=== PATIENT | male | born 1955 | race Caucasian/White ===

== ENCOUNTER 2016-08-03 07:08 | Emergency (ER) | payer OTHER ==
[~2016-08-03 07:08] MED LIST: CITALOPRAM HYDR40 MG PO; NORCO1 TA2 PO; NORTRIPTYLINE H25 MG PO; PERCOCET1 TA1 PO; [UNRECOGNIZED DRUG - OTHER] IN
--- NOTE | 2016-08-03 14:02 | DIAGNOSTIC IMAGING REPORT ---
PROCEDURE: CT ABDOMEN/PELVIS W/O CONTRAST INDICATION: Hematuria and abdominal pain TECHNIQUE: Noncontrast axial images with sagittal and coronal reformations. COMPARISON: Compared CT abdomen and pelvis on 01/21/2016. FINDINGS: ABDOMEN: There is mild left hydronephrosis and hydroureter secondary to a 5 mm proximal left ureteral calculus. There is also a 5 mm nonobstructing calculus in the upper pole left kidney. There is moderate surrounding of perirenal edema. There are small nonobstructing calculi in the right kidney (for pole 2 mm, lower pole 1 mm). Gallbladder, liver, spleen, pancreas, and aorta are normal. Small bowel pattern is normal, including appendix. There is a small 2 cm periumbilical hernia containing intra-abdominal lipomatous tissue. No evidence of bowel herniation. There are moderate to marked degenerate change of the lumbar spine. PELVIS: There is moderate enlargement prostate (4.9 cm) with central dystrophic calcifications. There is marked sigmoid diverticulosis, but no evidence of diverticulitis. There is severe changes change of the left hip joint. IMPRESSION: 1. There is acute left urinary obstruction and mild left hydronephrosis secondary to a 5 mm proximal ureteral calculus. 2. There is a 5 mm nonobstructing calculus in the upper pole left kidney. 3. There are two small nonobstructing right renal calculi (1 mm, 2 mm). 4. Moderate enlargement prostate (4.9 cm). 5. There is a 2 cm periumbilical hernia containing intra-abdominal lipomatous tissue (incidental finding). 6. Marked sigmoid diverticulosis, but no evidence of diverticulitis. 7. Moderate to marked degenerative change of the lumbar spine. 8. Marked degenerative change of the left hip joint. 9. Findings discussed with Dr. Snow Echeverria. All CT scans at this facility use dose modulation, iterative reconstruction, and/or weight-based dosing when appropriate to reduce radiation dose to as low as reasonably achievable.
--- NOTE | 2016-08-03 14:34 | ED CLINICAL REPORT ---
Clinical Report - Physicians/Mid Levels [facility] [address] [place] [address] 08/03/2016 7:07 Patient: STEFFEN CHAPARRO Time Seen: 07:57. Arrived- By private vehicle. Historian- patient. HISTORY OF PRESENT ILLNESS Chief Complaint: ABDOMINAL PAIN. This started yesterday and is still present. It was gradual in onset and has been waxing/waning. It is described as "pain". No radiation. It is described as generalized in location. Modifying factors- worsened by movement and food. Relieved by rest. The patient has had nausea. He has had vomiting. The vomiting has occurred several times. No bilious emesis, blood-tinged emesis or frankly bloody emesis. (states he "got in a fight with his pain doctor", then was trying to wean himself off). Similar symptoms previously: Several times. ( Seen at [facility] ED 10/2015, 11/2015 and 01/2016 for abdominal pain). Recent medical care: Not recently seen/assessed. REVIEW OF SYSTEMS The patient has had constipation and joint pain (especially right hip - chronic and unchanged). No black stools, hematemesis, difficulty with urination, pain with urination or urinary frequency. No bloody stools, fever, headache, sore throat or chest pain. No difficulty breathing or cough. Last bowel movement: yesterday. All systems otherwise negative, except as recorded above. PAST HISTORY PCP: Dr Feng See nurses notes. PROBLEMS: Arthritis. Diverticulitis. Ureterolithiasis. Anxiety Reaction. Chronic pain. Depression. Medications: Citalopram Hydrobromide Oral (Tablet 40 mg) 1 tablet. Oxycodone-Acetaminophen Oral (Tablet 7.5-325 mg) 2 tablets, 2x a day (now one a day trying to wean himself). Allergies: No Known Drug Allergy. SOCIAL HISTORY Never smoker. Occasional alcohol use. History of drug use: marijuana. ADDITIONAL NOTES The nursing notes have been reviewed. PHYSICAL EXAM Vital Signs: 08/03/2016 07:39 BP: 148/86. HR: 76. RR: 20. O2 saturation: 99%. Temp: 97.9 F. Pain level now: 10. Appearance: Alert. Oriented X3. Patient in moderate distress. Eyes: Eyes normal inspection. No scleral icterus or pale conjunctivae. ENT: Dry mucous membranes present. No pharyngeal erythema or tonsillar exudate. Neck: Normal inspection. Neck supple. CVS: Normal heart rate and rhythm. Heart sounds normal. Pulses normal. Respiratory: No respiratory distress. Breath sounds normal. Abdomen: Soft. Moderate tenderness diffusely. Small, tender mass with guarding present in the periumbilical area (umbilical hernia - easily reducible; no ecchymosis or overlying erythema). No pulsatile mass present. Femoral pulses equal. Severely obese. No rebound tenderness or femoral pulse deficit. Back: Normal inspection. Skin: Skin warm and dry. Normal skin color. Normal skin turgor. Extremities: Right hip: tenderness. Limited ROM secondary to pain. The right leg is not shortened, externally rotated, internally rotated, flexed or adducted. The right leg is not abducted. No lower extremity edema. Neuro: Oriented X 3. No motor deficit. LABS, X-RAYS, AND EKG Abdominal CT: Normal aorta. Normal liver, spleen, pancreas, gallbladder and adrenals. Multiple urinary calculi are present in the left proximal ureter (5 mm; 2 small calculi also noted in the kidney). There is mild obstruction. Bladder normal. Appendix normal. No mass. No free fluid. No bony lesion. No diverticulitis. Study type: abdomen and pelvis. Abdominal CT performed with contrast and without contrast. The study was independently viewed by me, interpreted by the radiologist and contemporaneously by me and discussed with the radiologist. Prior studies were not available for comparison. Laboratory Tests: CBC w Diff: (MARÍA: 08/03/2016 08:45) ( MsgRcvd 08/03/2016 09:02) Final results Test Result Flag Units (Reference) WHITE BLOOD COUNT 17.0 H K/uL (4.5-11.5) RED BLOOD COUNT 4.84 M/uL (4.50-5.90) HEMOGLOBIN 14.9 gm/dL (13.5-17.5) HEMATOCRIT 44.3 % (41.0-53.0) MEAN CELL VOLUME 92 fL (80-100) MEAN CORPUSCULAR HGB 31 pg (26-34) MEAN CORPUSCULAR HGB CONC 34 g/dL (31-37) RED CELL DISTRIBUTION WIDTH 13.9 % (11.6-14.8) PLATELET COUNT 304 K/uL (150-400) NEUTROPHIL % 91.4 H % (50-75) LYMPH % 4.6 L % (25-40) MONO % 3.8 % (3-14) EOSINOPHIL % 0.1 % (0-4) BASOPHIL % 0.1 % (0-2) PT with INR: (MARÍA: 08/03/2016 08:45) ( [facility] 08/03/2016 09:16) Final results Test Result Flag Units (Reference) INR 0.9 (0.8-1.2) Low Intensity Therapy: INR 1.5-2.0 PT range 18.5-23.1Mod.Intensity Therapy: INR 2.0-3.0 PT range 23.1-31.5High Intensity Therapy: INR 2.5-3.5 PT range 27.4-35.5High Intensity Therapy 2: INR 3.0-4.0 PT range 31.5-39.3 BNP: (MARÍA: 08/03/2016 08:45) ( [facility] 08/03/2016 09:34) Final results Test Result Flag Units (Reference) B-TYPE NATRIURETIC PEPTIDE 13.7 pg/ml (5-100) CHEM 13 PANEL: (MARÍA: 08/03/2016 08:45) ( [facility] Final results Test Result Flag Units (Reference) GLUCOSE 138 H mg/dL (70-110) BUN 21 H mg/dL (7-18) CREATININE 1.2 mg/dL (0.6-1.3) Estimated GFR >60 mL/min Estimated GFR- >60 mL/min Note: Persistent reduction over 3 months in eGFR<60 mL/min/1.73 m2 defines CKD. Patients with eGFR values>=60 mL/min/1.73 m2 may also have CKD if evidence ofpersistent proteinuria. Additional information may be foundat www.kidney.org. SODIUM 144 mmol/L (136-145) POTASSIUM 4.2 mmol/L (3.5-5.1) CHLORIDE 107 mmol/L (98-107) CARBON DIOXIDE 23 mmol/L (21-32) CALCIUM 9.7 mg/dL (8.5-10.1) TOTAL PROTEIN 7.8 g/dL (6.4-8.2) ALBUMIN 4.1 g/dL (3.3-5.0) BILIRUBIN, TOTAL 0.4 mg/dL (0.0-1.0) ALKALINE PHOSPHATASE 113 U/L (46-116) AST (SGOT) 16 U/L (15-37) ALT (SGPT) 41 U/L (12-78) MAGNESIUM 2.2 mg/dL (1.8-2.4) LIPASE 137 U/L (73-393) AMYLASE 57 U/L (25-115) CPK 67 U/L (24-260) TROPONIN I <0.05 L ng/mL (0.00-1.5) TROPONIN REFERENCE RANGE:<0.1 NEGATIVE0.1-1.5 INDETERMINANT>1.5 POSITIVE ETHYL ALCOHOL <3 L mg/dL (3-10) . Pulse Oximetry: 08/03/2016 07:39 O2 saturation: 99%. PROGRESS AND PROCEDURES Course of Care: Normal Saline 1 liter IVPB given. Phenergan 12.5 mg IVP given. Zofran 4 mg IVP given. I did receive this pt in sign-out at change of shift, pending the remainder of work-up. Pt continued to be in pain, and was given a dose of Dilaudid for this, with significant relief. CT of the abdomen and pelvis showed a significantly-sized, L ureteral stone, with mild hydronephrosis. No other acute or emergent findings. Pt was given a strainer, and advised to f/u with the urologist if stone fails to pass spontaneously in the next couple of weeks. Patient counseled in person regarding the patient's stable condition, test results, diagnosis and need for follow-up. Concerns were addressed. Old medical records reviewed. Disposition: Discharged. Condition: stable and improved. CLINICAL IMPRESSION Ureterolithiasis (single stone) in the left ureter with renal colic and hydronephrosis. Constipation Essential hypertension. INSTRUCTIONS Drink plenty of fluids. (You have a large kidney stone in the middle of your left ureter (tube going from your kidney to your bladder). This may pass on its own, but it is possible that the stone could get stuck. Because of this, you should follow up with the urology specialists.). Warnings: SEDATIVE MEDICATION: You were given sedative medication during your visit. Do not drive or operate dangerous machinery for 6 hours. GENERAL WARNINGS: Return or contact your physician immediately if your condition worsens or changes unexpectedly, if not improving as expected, or if other problems arise. Your Current Medications: CONTINUE TAKING THE FOLLOWING MEDICATIONS: Citalopram Hydrobromide Oral : Tablet 40 mg, 1 tablet. Oxycodone-Acetaminophen Oral : Tablet 7.5-325 mg, 2 tablets 2x a day, now one a day trying to wean himself. Prescription Medications: Zofran (orally disintegrating tablets) 4 mg: take 1-2 orally every 6 hours as needed for nausea. Dispense fifteen (15). No refill. Substitution is permissible. Flomax 0.4 mg: take 1 orally every 24 hours. Dispense ten (10). No refills. Substitution is permissible. Hydrocodone/APAP 5mg / 325mg: take 1-2 orally every 6 hours as needed for pain. Dispense twenty (20). No refill. Follow-up: Screening today revealed the patient's blood pressure to be in the hypertensive range. The patient should follow up with a primary care provider for blood pressure management. Understanding of the discharge instructions verbalized by patient. (Electronically signed by Snow Echeverria MD 08/10/2016 13:42)
--- NOTE | 2016-08-03 14:34 | ED NURSING NOTES ---
Clinical Report - Nurses [facility] [address] [place] [address] 08/03/2016 7:07 Patient: STEFFEN CHAPARRO TRIAGE Triage time 07:39. Acuity: LEVEL 3. Chief Complaint: ABDOMINAL PAIN and NAUSEA. Alert. ALEJANDRA COMA SCORE: Alejandra Coma Scale: 15- eyes open spontaneously (4); best verbal response- oriented x 4 (5); best motor response- obeys commands (6). --07:51 Shiloh Yanez R.N. 07:39 08/03/16. BP: 148/86. HR: 76. RR: 20. O2 saturation: 99%. Temp: 97.9 F (oral). Pain level now: 02/09. --07:51 Shiloh Yanez R.N. Weight: 18.1 kg stated. Height/Length: 72 inches Per Patient. BMI: 5.4. --07:43 Shiloh Yanez R.N. Medications Oxycodone-Acetaminophen Oral (Tablet 7.5-325 mg) 2 tablets, 2x a day (now one a day trying to wean himself). --07:40 Shiloh Yanez R.N. Citalopram Hydrobromide Oral (Tablet 40 mg) 1 tablet. --07:41 Shiloh Yanez R.N. Medication/allergy information source: the patient. --07:51 Shiloh Yanez R.N. Allergies No Known Drug Allergy. --07:42 Shiloh Yanez R.N. History Arrived by private vehicle. Historian: patient. Unaccompanied. Primary physician (Jung). This started today. Onset. (about 2 - 3 hours). ( states he "got in a fight with his pain doctor", then was trying to wean himself off). He has had nausea. SOCIAL HX: Never smoker. Occasional alcohol use. History of drug use: marijuana. FALL RISK ASSESSMENT: Fall risk assessment completed. Risk factors identified include severe pain, nausea and patient impairment of mobility. Fall interventions initiated. Patient placed on stretcher. Side rails up x1. Brakes on Bed in low position. --07:51 Shiloh Yanez R.N. PROBLEMS: Arthritis. Diverticulitis. Ureterolithiasis. Anxiety Reaction. Chronic pain. Depression. --07:43 Shiloh Yanez R.N. The following entry was modified by Snow Echeverria MD, 13:59 Reason - Struck from template <<STRICKEN ENTRY-- Abdominal Pain. --13:59 Snow Echeverria MD --END STRIKE>>. ADDITIONAL SURGERIES: Fracture Repair. R Leg Surgery. --07:43 Shiloh Yanez R.N. Assessment GENERAL / NEURO / PSYCH: The patient is awake and alert, is oriented and appears uncomfortable and agitated. He has poor eye contact. RESPIRATORY: Respirations not labored. SKIN: Skin is warm and dry. --07:51 Shiloh Yanez R.N. Interventions ID band on patient. To treatment room. --07:51 Shiloh Yanez R.N. PHYSICAL ASSESSMENT 07:58 08/03/16. To room via wheelchair. Patient gowned. GENERAL / NEURO / PSYCH: The patient is awake and alert, is oriented and appears uncomfortable and agitated. He has poor eye contact. RESPIRATORY: Respirations not labored. SKIN: Skin is warm and dry. --07:58 Shiloh Yanez R.N. NURSING PROGRESS NOTES 07:59 08/03/16. Pulse oximeter and NIBP monitor placed on patient. Patient gowned. Head of bed elevated. Call light placed in reach. Side rails up x 2. Bed placed in lowest position. Brakes of bed on. --07:59 Shiloh Yanez R.N. 08:32 08/03/2016 One (1) unsuccessful IV access attempt including the right hand. Applied bandage. --08:32 Shiloh Yanez R.N. 08:49 08/03/2016 Site #1 started via IV in the right hand with an 18g angiocath, with aseptic technique and good blood return; one attempt. Blood drawn: rainbow set. Labeled in the presence of the patient and sent to the lab. --08:49 Carolina Denis R.N. 08:54 08/03/2016 Started bag #1 1000 mL IV Fluids IV NS (Saline); at 1000 mL/hr over 1 hour(s) via site #1 via dial-a-flow. Allergies verified and confirmed 5 rights. IV patency established. IV site checked: no pain, redness, or swelling. IV flushed thoroughly pre- and post-medication administration. --09:09 Emily Lizarraga R.N. 08:55 08/03/2016 Zofran (Ondansetron HCl) IVP 4 mg given over 2 minute(s) via site #1. Allergies verified and confirmed 5 rights. IV patency established. IV site checked: no pain, redness, or swelling. IV flushed thoroughly pre- and post-medication administration. --09:10 Emily Lizarraga R.N. 09:10 08/03/2016 PHENERGAN (Promethazine HCl) IVP 25 mg given over 10 minute(s) via site #1. Allergies verified and confirmed 5 rights. IV patency established. IV site checked: no pain, redness, or swelling. IV flushed thoroughly pre- and post-medication administration. --09:10 Emily Lizarraga R.N. ( BG 105). --09:19 Emily Lizarraga R.N. Patient ID band checked for patient name and birthdate: patient confirmed. Instructions provided to collect clean catch urine and patient verbalized understanding. Clean catch urine collected with return of venancio-colored urine; sample sent to lab for urinalysis, culture and drug screen. Specimen labeled in the presence of the patient. --10:43 Ale Kay ER Tech1 ( 250 cc urine output per urinal . Sample sent to lab.). --10:45 Ale Kay ER Tech1 10:59 08/03/2016 IV Fluids IV NS Discontinued: bag #1 infused. Total amount infused: 1000 mL. IV patency established. IV site checked: no pain, redness, or swelling. IV flushed thoroughly. --14:59 Emily Lizarraga R.N. 14:10 08/03/2016 Dilaudid (HYDROmorphone HCl PF) IVP 2 mg given over 2 minute(s) via site #1. Allergies verified, confirmed 5 rights and sedative warning given to the patient. IV patency established. IV site checked: no pain, redness, or swelling. IV flushed thoroughly pre- and post-medication administration. --14:10 Emily Lizarraga R.N. 14:13 08/03/2016 Toradol IVP 30 mg given over 2 minute(s) via site #1. Allergies verified and confirmed 5 rights. IV patency established. IV site checked: no pain, redness, or swelling. IV flushed thoroughly pre- and post-medication administration. --14:13 Emily Lizarraga R.N. 14:48 08/03/16. BP: 125/82. HR: 76. RR: 18. O2 saturation: 98%. Temp: 98.9 F. Pain level now 0/10. 13:00 08/03/16. BP: 147/87. HR: 81. RR: 18. O2 saturation: 91%. Pain level now: 06/12. 11:00 08/03/16. BP: 149/98. HR: 69. RR: 18. O2 saturation: 96%. Pain level now: 8. 10:00 08/03/16. BP: 145/73. HR: 70. RR: 15. O2 saturation: 96%. Pain level now: 8. --14:58 Emily Lizarraga R.N. DISPOSITION / DISCHARGE Departure time: 14:55 Aug 03 2016. Condition at departure: improved. No learning barriers present. Discharge instructions provided and reviewed with the patient. Reviewed warnings. Reviewed medication(s). Treatments reviewed. Reviewed referrals. Patient verbalized understanding. Written instructions provided in Mexican. The patient was discharged home and accompanied by spouse. He left the Emergency Department ambulatory and via private vehicle. Spouse driving. --14:55 Emily Lizarraga R.N. 14:48 08/03/16. BP: 125/82. HR: 76. RR: 18. O2 saturation: 98%. Temp: 98.9 F. Pain level now 0/10. --14:55 Emily Lizarraga R.N. 14:45 08/03/2016 Site #1 removed upon discharge. Catheter intact. Pressure dressing applied. --14:55 Emily Lizarraga R.N. Locked/Released at 08/03/2016 15:27 by Emily Lizarraga R.N.
--- NOTE | 2016-08-03 14:34 | ED ORDER SUMMARY ---
..... Patient: STEFFEN CHAPARRO OrderSheet [facility] VisitID: [id number] [address] [place] [address] 60y, M Registration Date/Time: 08/03/2016 ORDER SHEET Weight: 18.1 kg (stated) Allergies: No Known Drug Allergy GENERAL ORDERS: Flame Hardener (Continuous) (08:15 08/03/2016 PHutchinson DO) (Ack 8:18 KHoerner) (9:09 LWhalen R.N.) UA-Culture if indicated Urgent (08:16 08/03/2016 PHutchinson DO) (Ack 8:18 KHoerner) (10:42 LNations ER Tech1) Amylase Urgent (08:08/03/2016 PHutchinson DO) (Ack 8:18 KHoerner) (8:50 DMaziarka R.N.) Lipase Urgent (08:08/03/2016 PHutchinson DO) (Ack 8:18 KHoerner) (8:50 DMaziarka R.N.) Urine Drug Screen Urgent (08:08/03/2016 PHutchinson DO) (Ack 8:18 KHoerner) (10:42 LNations ER Tech1) Ethyl Alcohol Urgent (08:08/03/2016 PHutchinson DO) (Ack 8:18 KHoerner) (8:50 DMaziarka R.N.) Lactate, Serum Urgent (08:08/03/2016 PHutchinson DO) (Ack 8:18 KHoerner) (8:50 DMaziarka R.N.) PT with INR Urgent (08:08/03/2016 PHutchinson DO) (Ack 8:18 KHoerner) (8:50 DMaziarka R.N.) Cardiac Panel Stat (08:08/03/2016 PHutchinson DO) (Ack 8:18 KHoerner) (8:50 DMaziarka R.N.) BNP Urgent (08:08/03/2016 PHutchinson DO) (Ack 8:18 KHoerner) (8:50 DMaziarka R.N.) NPO (08:16 08/03/2016 [facility]) (Ack 8:18 KHoerner) (9:09 LWhalen R.N.) POC Glucose (08:16 08/03/2016 [facility]) (Ack 8:18 KHoerner) (14:07 KHoerner) (14:07 LWhalen R.N.) Pulse oximeter (08:16 08/03/2016 [facility]) (Ack 8:18 KHoerner) (9:09 LWhalen R.N.) CT Abd/Pel wo Cont Urgent (12:56 08/03/2016 [facility]) (Ack 12:57 KHoerner) (14:35 LWhalen R.N.) Urine Strainer (14:32 08/03/2016 [facility]) (14:35 LWhalen R.N.) MEDICATION ORDERS: Phenergan IV 12.5 mg (HIGH ALERT MEDICATION, NOW) (09:01 08/03/2016 [facility]) (9:10 LWhalen R.N.) IV FLUIDS: IV NS : initial bolus 500 mL (1000 mL/hr), then 250 mL/hr for X2 (NOW) (08:15 08/03/2016 [facility]) (Ack 8:17 Kieran R.N.) (9:09 LWhalen R.N.) Zofran IV 4 mg (NOW) (08:16 08/03/2016 [facility]) (Ack 8:17 Kieran R.N.) (9:10 LWhalen R.N.) Dilaudid IV 2 mg (HIGH ALERT MEDICATION, NOW) (14:05 08/03/2016 [facility]) (14:10 LWhalen R.N.) Toradol IV 30 mg (NOW) (14:05 08/03/2016 [facility]) (14:13 LWhalen R.N.) ORDER SHEET NOTES: [Electronically signed by Emily Lizarraga R.N. (15:27 08/03/2016)] [Electronically signed by Snow Echeverria MD (13:42 08/10/2016)] [Electronically locked/signed by Emily Lizarraga R.N. (15:27 08/03/2016)]
--- NOTE | 2016-08-03 14:34 | ED ORDER SUMMARY ---
..... Patient: STEFFEN CHAPARRO OrderSheet [facility] VisitID: [id number] [address] [place] [address] 60y, M Registration Date/Time: 08/03/2016 ORDER SHEET Weight: 18.1 kg (stated) Allergies: No Known Drug Allergy GENERAL ORDERS: Interior Design Professor (Continuous) (08:15 08/03/2016 PHutchinson DO) (Ack 8:18 KHoerner) (9:09 LWhalen R.N.) UA-Culture if indicated Urgent (08:16 08/03/2016 PHutchinson DO) (Ack 8:18 KHoerner) (10:42 LNations ER Tech1) Amylase Urgent (08:08/03/2016 PHutchinson DO) (Ack 8:18 KHoerner) (8:50 DMaziarka R.N.) Lipase Urgent (08:08/03/2016 PHutchinson DO) (Ack 8:18 KHoerner) (8:50 DMaziarka R.N.) Urine Drug Screen Urgent (08:08/03/2016 PHutchinson DO) (Ack 8:18 KHoerner) (10:42 LNations ER Tech1) Ethyl Alcohol Urgent (08:08/03/2016 PHutchinson DO) (Ack 8:18 KHoerner) (8:50 DMaziarka R.N.) Lactate, Serum Urgent (08:08/03/2016 PHutchinson DO) (Ack 8:18 KHoerner) (8:50 DMaziarka R.N.) PT with INR Urgent (08:08/03/2016 PHutchinson DO) (Ack 8:18 KHoerner) (8:50 DMaziarka R.N.) Cardiac Panel Stat (08:08/03/2016 PHutchinson DO) (Ack 8:18 KHoerner) (8:50 DMaziarka R.N.) BNP Urgent (08:08/03/2016 PHutchinson DO) (Ack 8:18 KHoerner) (8:50 DMaziarka R.N.) NPO (08:16 08/03/2016 [facility]) (Ack 8:18 KHoerner) (9:09 LWhalen R.N.) POC Glucose (08:16 08/03/2016 [facility]) (Ack 8:18 KHoerner) (14:07 KHoerner) (14:07 LWhalen R.N.) Pulse oximeter (08:16 08/03/2016 [facility]) (Ack 8:18 KHoerner) (9:09 LWhalen R.N.) CT Abd/Pel wo Cont Urgent (12:56 08/03/2016 [facility]) (Ack 12:57 KHoerner) (14:35 LWhalen R.N.) Urine Strainer (14:32 08/03/2016 [facility]) (14:35 LWhalen R.N.) MEDICATION ORDERS: Phenergan IV 12.5 mg (HIGH ALERT MEDICATION, NOW) (09:01 08/03/2016 [facility]) (9:10 LWhalen R.N.) IV FLUIDS: IV NS : initial bolus 500 mL (1000 mL/hr), then 250 mL/hr for X2 (NOW) (08:15 08/03/2016 [facility]) (Ack 8:17 Kieran R.N.) (9:09 LWhalen R.N.) Zofran IV 4 mg (NOW) (08:16 08/03/2016 [facility]) (Ack 8:17 Kieran R.N.) (9:10 LWhalen R.N.) Dilaudid IV 2 mg (HIGH ALERT MEDICATION, NOW) (14:05 08/03/2016 [facility]) (14:10 LWhalen R.N.) Toradol IV 30 mg (NOW) (14:05 08/03/2016 [facility]) (14:13 LWhalen R.N.) ORDER SHEET NOTES: [Electronically signed by Emily Lizarraga R.N. (15:27 08/03/2016)] [Electronically signed by Snow Echeverria MD (13:42 08/10/2016)] [Electronically locked/signed by Emily Lizarraga R.N. (15:27 08/03/2016)]
--- NOTE | 2016-08-10 13:42 | ED MAR SUMMARY ---
..... Medication Administration Record [facility] [address] [place] [address] Patient: STEFFEN CHAPARRO Visit ID: [id number] 60y, M Weight: 18.1 kg Height/Length: 72 in BMI: 5.4 ALLERGIES: No Known Drug Allergy Start 08:54 08/03/2016 Emily Lizarraga R.N., Stop 10:59 08/03/2016 Emily Lizarraga R.N. Medication Administered: IV NS (SALINE), Dose: IV Fluids over 1 hour(s), Rate: 1000 mL/hr, Dispensed: 1000 mL bag, Site: #1 right hand. Medication Ordered: IV NS : initial bolus 500 mL (1000 mL/hr), then 250 mL/hr for X2 (NOW). Given 08:55 08/03/2016 Emily Lizarraga R.N. Medication Administered: ZOFRAN [IVP] (ONDANSETRON HCL), Dose: 4 mg IVP over 2 minute(s), Site: #1 right hand. Medication Ordered: Zofran IV 4 mg (NOW). Given 09:10 08/03/2016 Emily Lizarraga R.N. Medication Administered: PHENERGAN [IVP] (PROMETHAZINE HCL), Dose: 25 mg IVP over 10 minute(s), Site: #1 right hand. Medication Ordered: Phenergan IV 12.5 mg (HIGH ALERT MEDICATION, NOW). Given 14:10 08/03/2016 Emily Lizarraga R.N. Medication Administered: DILAUDID [IVP] (HYDROMORPHONE HCL PF), Dose: 2 mg IVP over 2 minute(s), Site: #1 right hand. Medication Ordered: Dilaudid IV 2 mg (HIGH ALERT MEDICATION, NOW). Given 14:13 08/03/2016 Emily Lizarraga R.N. Medication Administered: TORADOL [IVP], Dose: 30 mg IVP over 2 minute(s), Site: #1 right hand. Medication Ordered: Toradol IV 30 mg (NOW).
--- NOTE | 2016-08-10 13:42 | ED MED RECONCILIATION SUMMARY ---
Patient: STEFFEN CHAPARRO Medication Reconciliation Report [facility] VisitID: [id number] [address] [place] [address] 60y, M Registration Date/Time: 08/03/2016 Weight: 18.1 kg Height/Length: 72 in. BMI: 5.4 ALLERGIES: No Known Drug Allergy The patient's Home Medications are listed below: CONTINUE TAKING THE FOLLOWING MEDICATIONS: Citalopram Hydrobromide Oral (40 mg) 1 tablet Oxycodone-Acetaminophen Oral (7.5-325 mg) 2 tablets, 2x a day, now one a day trying to wean himself The source(s) of the original Home Medication information: patient The following Medications were given to the patient in the Emergency Department: IV NS IV Fluids bolus 0, then 1000 mL/hr, administered: 08/03/2016 8:54:00 AM Zofran [IVP] IVP 4 mg, administered: 08/03/2016 8:55:00 AM PHENERGAN [IVP] IVP 25 mg, administered: 08/03/2016 9:10:00 AM Dilaudid [IVP] IVP 2 mg, administered: 08/03/2016 2:10:00 PM Toradol [IVP] IVP 30 mg, administered: 08/03/2016 2:13:00 PM The following Medications were prescribed to the patient: Zofran (orally disintegrating tablets) 4 mg: take 1-2 orally every 6 hours as needed for nausea. Dispense fifteen (15). No refill. Substitution is permissible. -- Snow Echeverria MD Flomax 0.4 mg: take 1 orally every 24 hours. Dispense ten (10). No refills. Substitution is permissible. -- Snow Echeverria MD Hydrocodone/APAP 5mg / 325mg: take 1-2 orally every 6 hours as needed for pain. Dispense twenty (20). No refill. -- Snow Echeverria MD
--- NOTE | 2016-08-10 13:42 | ED DISCHARGE INSTRUCTIONS ---
Patient: STEFFEN CHAPARRO General Instructions [facility] VisitID: [id number] [address] [place] [address] 60y, M Registration Date/Time: 08/03/2016 Ureterolithiasis (single stone) in the left ureter with renal colic and hydronephrosis. Constipation Essential hypertension. INSTRUCTIONS Drink plenty of fluids. (You have a large kidney stone in the middle of your left ureter (tube going from your kidney to your bladder). This may pass on its own, but it is possible that the stone could get stuck. Because of this, you should follow up with the urology specialists.). Warnings: SEDATIVE MEDICATION: You were given sedative medication during your visit. Do not drive or operate dangerous machinery for 6 hours. GENERAL WARNINGS: Return or contact your physician immediately if your condition worsens or changes unexpectedly, if not improving as expected, or if other problems arise. Your Current Medications: CONTINUE TAKING THE FOLLOWING MEDICATIONS: Citalopram Hydrobromide Oral : Tablet 40 mg, 1 tablet. Oxycodone-Acetaminophen Oral : Tablet 7.5-325 mg, 2 tablets 2x a day, now one a day trying to wean himself. Prescription Medications: Zofran (orally disintegrating tablets) 4 mg: take 1-2 orally every 6 hours as needed for nausea. Dispense fifteen (15). No refill. Substitution is permissible. Flomax 0.4 mg: take 1 orally every 24 hours. Dispense ten (10). No refills. Substitution is permissible. Hydrocodone/APAP 5mg / 325mg: take 1-2 orally every 6 hours as needed for pain. Dispense twenty (20). No refill. Follow-up: Screening today revealed the patient's blood pressure to be in the hypertensive range. The patient should follow up with a primary care provider for blood pressure management. Understanding of the discharge instructions verbalized by patient. ADDITIONAL INFORMATION Constipation (Adult) Constipation is bowel movements that are less frequent than usual. Stools often become very hard and difficult to pass. This may lead to abdominal pain and bloating. It may also cause painful bowel movements. Constipation may be due to a diet thats low in fiber. Some medications, especially pain medications, can also cause it. Constipation may be treated with enemas, suppositories, laxatives or stool softeners. Your doctor will advise you which will work best for you. Follow the advice below to help avoid this problem in the future. Home Care Medication: Take any medicines as directed. Some laxatives are safe only for occasional use. Others can be taken on a regular basis. Talk to your doctor or pharmacist if you have questions. General Care: Prescription pain medications can cause constipation. If you are prescribed pain medications, ask the doctor whether you should also take a stool softener. A diet high in fiber with plenty of fluids helps to maintain regular, soft bowel movements. The following foods are good sources of dietary fiber: Cereals and breads: Whole grain cereal with bran, oatmeal, rolled oats, whole grain breads Fruits: All fruits (fresh and dried), raisins, prunes, apricots, berries, figs Vegetables: Any fresh vegetables, especially peas, broccoli, brussels sprouts, winter squash, green beans, cauliflower, todd beans, carrots Other: Popcorn, brown rice Drink plenty of water when you increase the amount of fiber you eat. Follow Up with your doctor or return to this facility if symptoms do not improve in the next few days. You may require further tests or a referral to a specialist. Get Prompt Medical Attention if any of the following occur: Fever over 100.4F (38C) Failure to resume normal bowel movements Increasing abdominal or back pain Nausea or vomiting Abdominal swelling Blood in the stool Weakness, dizziness or fainting Unexpected vaginal bleeding Kidney Stone (W/ Colic) The sharp cramping pain and nausea/vomiting that you have is due to a small stone which has formed in the kidney and is now passing down a narrow tube (ureter) on its way to your bladder. Once it reaches your bladder, the pain will stop. The stone may pass in your urine stream in one piece. [The size may be 1/16" to 1/4" (1-6mm)]. Or, the stone may also break up into danita fragments which you may not even notice. Once you have had a kidney stone, you are at risk for developing another one in the future. Home Care: Drink plenty of fluids (at least 8 to 10 glasses of water a day). Most stones will pass on their own, but may take from a few hours to a few days. Sometimes the stone is too large to pass by itself and special methods will have to be used to remove the stone. Each time you urinate, do so in a jar. Pour the urine from the jar through the strainer and into the toilet. Continue doing this until 24 hours after your pain stops. By then, if there was a kidney stone, it should pass from your bladder. Some stones dissolve into sand-like particles and pass right through the strainer. In that case, you wont ever see a stone. Save any stone that you find in the strainer and bring it to your doctor for analysis. It may be possible to prevent certain types of stones from forming. Therefore, it is important to know what kind of stone you have. Try to stay as active as possible since this will help the stone pass. Do not stay in bed unless your pain prevents you from getting up. You may notice a red, pink or brown color to your urine. This is normal while passing a kidney stone. Follow Up with your doctor or return to this facility if the pain lasts more than 48 hours. Get Prompt Medical Attention if any of the following occur: Pain that is not controlled by the medicine given Repeated vomiting or unable to keep down fluids Weakness, dizziness or fainting Fever of 100.4F (38C) or higher, or as directed by your healthcare provider Passage of solid red or brown urine (can't see through it) or urine with lots of blood clots Unable to pass urine for 8 hours and increasing bladder pressure High Blood Pressure -- To Be Confirmed [No Tx] Your blood pressure was higher today than normal. Sometimes anxiety or pain can cause a temporary rise in blood pressure that later returns to normal. If your blood pressure is high on one measurement, this does not mean that you have hypertension (a chronic illness). However, you must have your blood pressure measured again within the next few days to find out if its still high. A normal blood pressure is 120/80 or less. The first (top) number is the "systolic" pressure. The second (bottom) number is the "diastolic" pressure. Hypertension exists when either the top number is 140 or higher, OR the bottom number is 90 or higher on repeated measurements. Blood pressure in the range of 120-140 (systolic) or 80-89 (diastolic) is considered "pre-hypertension". This means your are at risk for getting hypertension. You should have regular blood pressure checks to be sure your blood pressure is not rising. Home Care: Measure your blood pressure on 3 different days and write down the results. This can be done at your doctor's office or this facility. Some pharmacies and grocery stores offer automated blood pressure machines for your use. Follow Up: If your blood pressure is "high" (over 120/80) on 2 out of 3 days, you will need to follow up with your doctor for further evaluation and treatment. DO NOT PUT THIS OFF! Untreated high blood pressure increases the risk for heart attack, also known as acute myocardial infarction, or AMI, and stroke. It is a treatable condition. Get Prompt Medical Attention if any of the following occur: Chest pain or shortness of breath Severe headache Throbbing or rushing sound in the ears Nosebleed Sudden severe abdominal pain Extreme drowsiness, confusion or fainting Dizziness or vertigo (dizziness with spinning sensation) Weakness of an arm or leg or one side of the face Difficulty with speech or vision You have been given the following additional information: Constipation (Adult) Kidney Stone W/ Colic Hypertension, To Be Confirmed (Electronically signed by Snow Echeverria MD 08/10/2016 13:42)
--- NOTE | 2016-08-10 13:42 | ED MED RECONCILIATION SUMMARY ---
Patient: STEFFEN CHAPARRO Medication Reconciliation Report [facility] VisitID: [id number] [address] [place] [address] 60y, M Registration Date/Time: 08/03/2016 Weight: 18.1 kg Height/Length: 72 in. BMI: 5.4 ALLERGIES: No Known Drug Allergy The patient's Home Medications are listed below: CONTINUE TAKING THE FOLLOWING MEDICATIONS: Citalopram Hydrobromide Oral (40 mg) 1 tablet Oxycodone-Acetaminophen Oral (7.5-325 mg) 2 tablets, 2x a day, now one a day trying to wean himself The source(s) of the original Home Medication information: patient The following Medications were given to the patient in the Emergency Department: IV NS IV Fluids bolus 0, then 1000 mL/hr, administered: 08/03/2016 8:54:00 AM Zofran [IVP] IVP 4 mg, administered: 08/03/2016 8:55:00 AM PHENERGAN [IVP] IVP 25 mg, administered: 08/03/2016 9:10:00 AM Dilaudid [IVP] IVP 2 mg, administered: 08/03/2016 2:10:00 PM Toradol [IVP] IVP 30 mg, administered: 08/03/2016 2:13:00 PM The following Medications were prescribed to the patient: Zofran (orally disintegrating tablets) 4 mg: take 1-2 orally every 6 hours as needed for nausea. Dispense fifteen (15). No refill. Substitution is permissible. -- Snow Echeverria MD Flomax 0.4 mg: take 1 orally every 24 hours. Dispense ten (10). No refills. Substitution is permissible. -- Snow Echeverria MD Hydrocodone/APAP 5mg / 325mg: take 1-2 orally every 6 hours as needed for pain. Dispense twenty (20). No refill. -- Snow Echeverria MD
--- NOTE | 2016-08-10 13:42 | ED MAR SUMMARY ---
..... Medication Administration Record [facility] [address] [place] [address] Patient: STEFFEN CHAPARRO Visit ID: [id number] 60y, M Weight: 18.1 kg Height/Length: 72 in BMI: 5.4 ALLERGIES: No Known Drug Allergy Start 08:54 08/03/2016 Emily Lizarraga R.N., Stop 10:59 08/03/2016 Emily Lizarraga R.N. Medication Administered: IV NS (SALINE), Dose: IV Fluids over 1 hour(s), Rate: 1000 mL/hr, Dispensed: 1000 mL bag, Site: #1 right hand. Medication Ordered: IV NS : initial bolus 500 mL (1000 mL/hr), then 250 mL/hr for X2 (NOW). Given 08:55 08/03/2016 Emily Lizarraga R.N. Medication Administered: ZOFRAN [IVP] (ONDANSETRON HCL), Dose: 4 mg IVP over 2 minute(s), Site: #1 right hand. Medication Ordered: Zofran IV 4 mg (NOW). Given 09:10 08/03/2016 Emily Lizarraga R.N. Medication Administered: PHENERGAN [IVP] (PROMETHAZINE HCL), Dose: 25 mg IVP over 10 minute(s), Site: #1 right hand. Medication Ordered: Phenergan IV 12.5 mg (HIGH ALERT MEDICATION, NOW). Given 14:10 08/03/2016 Emily Lizarraga R.N. Medication Administered: DILAUDID [IVP] (HYDROMORPHONE HCL PF), Dose: 2 mg IVP over 2 minute(s), Site: #1 right hand. Medication Ordered: Dilaudid IV 2 mg (HIGH ALERT MEDICATION, NOW). Given 14:13 08/03/2016 Emily Lizarraga R.N. Medication Administered: TORADOL [IVP], Dose: 30 mg IVP over 2 minute(s), Site: #1 right hand. Medication Ordered: Toradol IV 30 mg (NOW).
== END 2016-08-03 14:45 | disposition home or self-care (01) ==
LOC: ED SRH 07:08
DX: N20.1 Calculus of ureter (principal); N13.30 Unspecified hydronephrosis; K59.00 Constipation, unspecified; I10 Essential (primary) hypertension; K42.9 Umbilical hernia without obstruction or gangrene
CPT/HCPCS: 90004; 90074; 90100; 90616; 91320; 92010; 92031; 92235; 92530; 92610; 92720; 92760; 92761; 92762; 92763; 92764; 92765; 92766; 92767; 94060; 95059

== ENCOUNTER 2016-08-24 08:38 | Emergency (ER) | payer OTHER ==
--- NOTE | 2016-08-24 12:39 | ED CLINICAL REPORT ---
Clinical Report - Physicians/Mid Levels [facility] [address] [place] [address] 08/24/2016 8:37 Patient: STEFFEN CHAPARRO Time Seen: 09:13. Arrived- By private vehicle. Historian- patient. HISTORY OF PRESENT ILLNESS Chief Complaint: LEFT FLANK PAIN. This started yesterday and is still present. The problem is described as severe. It was abrupt in onset and has been intermittent and waxing/waning. No discomfort with urination, urinary frequency, testicular pain or urgency of urination. He has had severe left-sided flank pain. Similar symptoms previously: Recent medical care: The patient was seen recently by a health care provider. Seen for similar symptoms. Evaluation/treatment: CXR, CT scan and labs. Diagnosis: renal colic. REVIEW OF SYSTEMS The patient has had chills and nausea and experienced sweats. No fever, calf pain, chest pain, cough or difficulty breathing. No pedal edema, palpitations, black stools, bloody stools or constipation. No diarrhea, vomiting or urinary problems. All systems otherwise negative, except as recorded above. PAST HISTORY ( PCP Nelida Feng). Problems: Constipation. Hypertension. Arthritis. Diverticulitis. Ureterolithiasis. Anxiety Reaction. Chronic pain. Depression. Additional Surgeries: Fracture Repair. R Leg Surgery. Medications: Citalopram Hydrobromide Oral (Tablet 40 mg) 1 tablet. Allergies: No Known Drug Allergy. SOCIAL HISTORY Never smoker. Occasional alcohol use. History of occasional drug use: marijuana. FAMILY HISTORY Heart disease in first-degree relative (father). ADDITIONAL NOTES The nursing notes have been reviewed. PHYSICAL EXAM Vital Signs: 08/24/2016 08:42 BP: 182/90. HR: 78. RR: 18. O2 saturation: 96%. Temp: 98.6 F. Have been reviewed. Appearance: Alert. No acute distress. ENT: Pharynx normal. Neck: Neck supple. CVS: Heart sounds normal. Respiratory: Breath sounds normal. Abdomen: Soft and nontender. Bowel sounds normal. No organomegaly. No mass. Obese. Back: Normal external inspection. No CVA tenderness. Skin: Skin warm and dry. Normal skin color. Normal skin turgor. Extremities: Extremities exhibit normal ROM. No calf tenderness. No lower extremity edema. LABS, X-RAYS, AND EKG LS-Spine X-rays: Severe degenerative joint disease with prominent narrowing of disc spaces (at L5 - S1). The X-rays were independently viewed by me. Laboratory Tests: UA-Culture if indicated: (MARÍA: 08/24/2016 10:00) ( [facility] 08/24/2016 10:23) Final results Test Result Flag Units (Reference) URINE COLOR YELLOW URINE APPEARANCE CLEAR URINE GLUCOSE NEGATIVE (NEGATIVE) URINE BILIRUBIN NEGATIVE (NEGATIVE) URINE KETONE NEGATIVE (NEGATIVE) URINE SPECIFIC GRAVITY 1.015 (1.010-1.030) URINE PH 5.5 (5.0-8.0) URINE PROTEIN NEGATIVE (NEGATIVE) URINE UROBILINOGEN 0.2 EU/dL (0.2-1.0) URINE NITRITE NEGATIVE (NEGATIVE) URINE BLOOD NEGATIVE (NEGATIVE) URINE LEUK ESTERASE NEGATIVE (NEGATIVE) URINE RBC NONE SEEN rbc/hpf (0-1) URINE WBC RARE wbc/hpf (0-1) URINE EPITHELIAL CELLS NONE SEEN EPI/hpf (0-5) URINE BACTERIA NONE SEEN (NONE SEEN) URINE COMMENT CULT NOT INDICATED 1+ MUCUSURINE CULTURES ARE SET-UP BASED ON THE FOLLOWING CRITERIA:POSITIVE NITRITEPOSITIVE LEUKOCYTE ESTERASEGREATER THAN 10 WHITE BLOOD CELLSMODERATE (2+) OR GREATER BACTERIA CBC w Diff: (MARÍA: 08/24/2016 08:50) ( [facility] 08/24/2016 09:25) Final results Test Result Flag Units (Reference) WHITE BLOOD COUNT 10.4 K/uL (4.5-11.5) RED BLOOD COUNT 4.72 M/uL (4.50-5.90) HEMOGLOBIN 14.6 gm/dL (13.5-17.5) HEMATOCRIT 43.1 % (41.0-53.0) MEAN CELL VOLUME 91 fL (80-100) MEAN CORPUSCULAR HGB 31 pg (26-34) MEAN CORPUSCULAR HGB CONC 34 g/dL (31-37) RED CELL DISTRIBUTION WIDTH 14.2 % (11.6-14.8) PLATELET COUNT 335 K/uL (150-400) NEUTROPHIL % 77.7 H % (50-75) LYMPH % 15.2 L % (25-40) MONO % 5.8 % (3-14) EOSINOPHIL % 1.0 % (0-4) BASOPHIL % 0.3 % (0-2) Urine Drug Screen: (MARÍA: 08/24/2016 10:00) ( MsgRcvd 08/24/2016 10:41) Final results Test Result Flag Units (Reference) AMPHETAMINE/METHAMPHETAMINE NEGATIVE (NEGATIVE) BARBITURATE NEGATIVE (NEGATIVE) BENZODIAZEPINE NEGATIVE (NEGATIVE) CANNABINOID POSITIVE H (NEGATIVE) COCAINE NEGATIVE (NEGATIVE) ECSTASY NEGATIVE (NEGATIVE) METHADONE NEGATIVE (NEGATIVE) OPIATE NEGATIVE (NEGATIVE) The urine drug screen is a qualitative screening test fordrug overdose and abuse. All screen results should beconsidered as presumptive.Drugs screened for are as follows:BenzodiazepinesCocaineAmphetamines/MetamphetaminesTHC (Tetrahydrocannabinol)OpiatesBarbituratesEcstasyMethadonePositive results are unconfirmed. For confirmation, notifythe lab for the specimen to be sent to the reference lab.All confirmations must be performed by a differentmethodology.The ingestion of natural herbal and plant productscontaining Ephedra/Ephedra metabolites can produce in urineone or more substances capable of cross reacting withamphetamine/methamphetamine immunoassays. These testsprovide a preliminary result only. A more specificalternative chemical method must be used to obtain aconfirmed analytical result. CMP: (MARÍA: 08/24/2016 08:50) ( MsgRcvd 08/24/2016 09:47) Final results Test Result Flag Units (Reference) GLUCOSE 122 H mg/dL (70-110) BUN 15 mg/dL (7-18) CREATININE 0.8 mg/dL (0.6-1.3) Estimated GFR >60 mL/min Estimated GFR- >60 mL/min Note: Persistent reduction over 3 months in eGFR<60 mL/min/1.73 m2 defines CKD. Patients with eGFR values>=60 mL/min/1.73 m2 may also have CKD if evidence ofpersistent proteinuria. Additional information may be foundat www.kidney.org. SODIUM 142 mmol/L (136-145) POTASSIUM 4.5 mmol/L (3.5-5.1) CHLORIDE 105 mmol/L (98-107) CARBON DIOXIDE 25 mmol/L (21-32) CALCIUM 9.2 mg/dL (8.5-10.1) TOTAL PROTEIN 7.7 g/dL (6.4-8.2) ALBUMIN 3.8 g/dL (3.3-5.0) BILIRUBIN, TOTAL 0.5 mg/dL (0.0-1.0) ALKALINE PHOSPHATASE 109 U/L (46-116) AST (SGOT) 21 U/L (15-37) ALT (SGPT) 44 U/L (12-78) LIPASE 134 U/L (73-393) AMYLASE 54 U/L (25-115) . PROGRESS AND PROCEDURES Course of Care: Patient is stable. Patient/family counseled. Old medical records reviewed. Disposition: Discharged. Condition: stable. CLINICAL IMPRESSION Back pain associated with degenerative joint disease of the lumbar spine; degenerative disc disease of the lumbar spine. INSTRUCTIONS Warnings: Further evaluation is necessary. GENERAL WARNINGS: Return or contact your physician immediately if your condition worsens or changes unexpectedly, if not improving as expected, or if other problems arise. Your Current Medications: CONTINUE TAKING THE FOLLOWING MEDICATIONS: Citalopram Hydrobromide Oral : Tablet 40 mg, 1 tablet. Prescription Medications: Toradol 10 mg tablets: Take 1 tablet orally every 6 hours as needed. Dispense fifteen (15). No refills. Substitution is permissible. Follow-up: Follow up with an orthopedic surgeon and a neurosurgeon- as recommended by your primary care physician. Understanding of the discharge instructions verbalized by patient. Follow-up with: Abimael Feng MD, [facility], , [address], [place], [address] Follow up in four days. Call for the next available appointment. (Electronically signed by Brady Washington MD 08/26/2016 2:49)
--- NOTE | 2016-08-24 12:39 | ED CLINICAL REPORT ---
Clinical Report - Physicians/Mid Levels [facility] [address] [place] [address] 08/24/2016 8:37 Patient: STEFFEN CHAPARRO Time Seen: 09:13. Arrived- By private vehicle. Historian- patient. HISTORY OF PRESENT ILLNESS Chief Complaint: LEFT FLANK PAIN. This started yesterday and is still present. The problem is described as severe. It was abrupt in onset and has been intermittent and waxing/waning. No discomfort with urination, urinary frequency, testicular pain or urgency of urination. He has had severe left-sided flank pain. Similar symptoms previously: Recent medical care: The patient was seen recently by a health care provider. Seen for similar symptoms. Evaluation/treatment: CXR, CT scan and labs. Diagnosis: renal colic. REVIEW OF SYSTEMS The patient has had chills and nausea and experienced sweats. No fever, calf pain, chest pain, cough or difficulty breathing. No pedal edema, palpitations, black stools, bloody stools or constipation. No diarrhea, vomiting or urinary problems. All systems otherwise negative, except as recorded above. PAST HISTORY ( PCP Nelida Feng). Problems: Constipation. Hypertension. Arthritis. Diverticulitis. Ureterolithiasis. Anxiety Reaction. Chronic pain. Depression. Additional Surgeries: Fracture Repair. R Leg Surgery. Medications: Citalopram Hydrobromide Oral (Tablet 40 mg) 1 tablet. Allergies: No Known Drug Allergy. SOCIAL HISTORY Never smoker. Occasional alcohol use. History of occasional drug use: marijuana. FAMILY HISTORY Heart disease in first-degree relative (father). ADDITIONAL NOTES The nursing notes have been reviewed. PHYSICAL EXAM Vital Signs: 08/24/2016 08:42 BP: 182/90. HR: 78. RR: 18. O2 saturation: 96%. Temp: 98.6 F. Have been reviewed. Appearance: Alert. No acute distress. ENT: Pharynx normal. Neck: Neck supple. CVS: Heart sounds normal. Respiratory: Breath sounds normal. Abdomen: Soft and nontender. Bowel sounds normal. No organomegaly. No mass. Obese. Back: Normal external inspection. No CVA tenderness. Skin: Skin warm and dry. Normal skin color. Normal skin turgor. Extremities: Extremities exhibit normal ROM. No calf tenderness. No lower extremity edema. LABS, X-RAYS, AND EKG LS-Spine X-rays: Severe degenerative joint disease with prominent narrowing of disc spaces (at L5 - S1). The X-rays were independently viewed by me. Laboratory Tests: UA-Culture if indicated: (MARÍA: 08/24/2016 10:00) ( [facility] 08/24/2016 10:23) Final results Test Result Flag Units (Reference) URINE COLOR YELLOW URINE APPEARANCE CLEAR URINE GLUCOSE NEGATIVE (NEGATIVE) URINE BILIRUBIN NEGATIVE (NEGATIVE) URINE KETONE NEGATIVE (NEGATIVE) URINE SPECIFIC GRAVITY 1.015 (1.010-1.030) URINE PH 5.5 (5.0-8.0) URINE PROTEIN NEGATIVE (NEGATIVE) URINE UROBILINOGEN 0.2 EU/dL (0.2-1.0) URINE NITRITE NEGATIVE (NEGATIVE) URINE BLOOD NEGATIVE (NEGATIVE) URINE LEUK ESTERASE NEGATIVE (NEGATIVE) URINE RBC NONE SEEN rbc/hpf (0-1) URINE WBC RARE wbc/hpf (0-1) URINE EPITHELIAL CELLS NONE SEEN EPI/hpf (0-5) URINE BACTERIA NONE SEEN (NONE SEEN) URINE COMMENT CULT NOT INDICATED 1+ MUCUSURINE CULTURES ARE SET-UP BASED ON THE FOLLOWING CRITERIA:POSITIVE NITRITEPOSITIVE LEUKOCYTE ESTERASEGREATER THAN 10 WHITE BLOOD CELLSMODERATE (2+) OR GREATER BACTERIA CBC w Diff: (MARÍA: 08/24/2016 08:50) ( [facility] 08/24/2016 09:25) Final results Test Result Flag Units (Reference) WHITE BLOOD COUNT 10.4 K/uL (4.5-11.5) RED BLOOD COUNT 4.72 M/uL (4.50-5.90) HEMOGLOBIN 14.6 gm/dL (13.5-17.5) HEMATOCRIT 43.1 % (41.0-53.0) MEAN CELL VOLUME 91 fL (80-100) MEAN CORPUSCULAR HGB 31 pg (26-34) MEAN CORPUSCULAR HGB CONC 34 g/dL (31-37) RED CELL DISTRIBUTION WIDTH 14.2 % (11.6-14.8) PLATELET COUNT 335 K/uL (150-400) NEUTROPHIL % 77.7 H % (50-75) LYMPH % 15.2 L % (25-40) MONO % 5.8 % (3-14) EOSINOPHIL % 1.0 % (0-4) BASOPHIL % 0.3 % (0-2) Urine Drug Screen: (MARÍA: 08/24/2016 10:00) ( MsgRcvd 08/24/2016 10:41) Final results Test Result Flag Units (Reference) AMPHETAMINE/METHAMPHETAMINE NEGATIVE (NEGATIVE) BARBITURATE NEGATIVE (NEGATIVE) BENZODIAZEPINE NEGATIVE (NEGATIVE) CANNABINOID POSITIVE H (NEGATIVE) COCAINE NEGATIVE (NEGATIVE) ECSTASY NEGATIVE (NEGATIVE) METHADONE NEGATIVE (NEGATIVE) OPIATE NEGATIVE (NEGATIVE) The urine drug screen is a qualitative screening test fordrug overdose and abuse. All screen results should beconsidered as presumptive.Drugs screened for are as follows:BenzodiazepinesCocaineAmphetamines/MetamphetaminesTHC (Tetrahydrocannabinol)OpiatesBarbituratesEcstasyMethadonePositive results are unconfirmed. For confirmation, notifythe lab for the specimen to be sent to the reference lab.All confirmations must be performed by a differentmethodology.The ingestion of natural herbal and plant productscontaining Ephedra/Ephedra metabolites can produce in urineone or more substances capable of cross reacting withamphetamine/methamphetamine immunoassays. These testsprovide a preliminary result only. A more specificalternative chemical method must be used to obtain aconfirmed analytical result. CMP: (MARÍA: 08/24/2016 08:50) ( MsgRcvd 08/24/2016 09:47) Final results Test Result Flag Units (Reference) GLUCOSE 122 H mg/dL (70-110) BUN 15 mg/dL (7-18) CREATININE 0.8 mg/dL (0.6-1.3) Estimated GFR >60 mL/min Estimated GFR- >60 mL/min Note: Persistent reduction over 3 months in eGFR<60 mL/min/1.73 m2 defines CKD. Patients with eGFR values>=60 mL/min/1.73 m2 may also have CKD if evidence ofpersistent proteinuria. Additional information may be foundat www.kidney.org. SODIUM 142 mmol/L (136-145) POTASSIUM 4.5 mmol/L (3.5-5.1) CHLORIDE 105 mmol/L (98-107) CARBON DIOXIDE 25 mmol/L (21-32) CALCIUM 9.2 mg/dL (8.5-10.1) TOTAL PROTEIN 7.7 g/dL (6.4-8.2) ALBUMIN 3.8 g/dL (3.3-5.0) BILIRUBIN, TOTAL 0.5 mg/dL (0.0-1.0) ALKALINE PHOSPHATASE 109 U/L (46-116) AST (SGOT) 21 U/L (15-37) ALT (SGPT) 44 U/L (12-78) LIPASE 134 U/L (73-393) AMYLASE 54 U/L (25-115) . PROGRESS AND PROCEDURES Course of Care: Patient is stable. Patient/family counseled. Old medical records reviewed. Disposition: Discharged. Condition: stable. CLINICAL IMPRESSION Back pain associated with degenerative joint disease of the lumbar spine; degenerative disc disease of the lumbar spine. INSTRUCTIONS Warnings: Further evaluation is necessary. GENERAL WARNINGS: Return or contact your physician immediately if your condition worsens or changes unexpectedly, if not improving as expected, or if other problems arise. Your Current Medications: CONTINUE TAKING THE FOLLOWING MEDICATIONS: Citalopram Hydrobromide Oral : Tablet 40 mg, 1 tablet. Prescription Medications: Toradol 10 mg tablets: Take 1 tablet orally every 6 hours as needed. Dispense fifteen (15). No refills. Substitution is permissible. Follow-up: Follow up with an orthopedic surgeon and a neurosurgeon- as recommended by your primary care physician. Understanding of the discharge instructions verbalized by patient. Follow-up with: Abimael Feng MD, [facility], , [address], [place], [address] Follow up in four days. Call for the next available appointment. (Electronically signed by Brady Washington MD 08/26/2016 2:49)
--- NOTE | 2016-08-24 12:39 | ED NURSING NOTES ---
Clinical Report - Nurses [facility] [address] [place] [address] 08/24/2016 8:37 Patient: STEFFEN CHAPARRO TRIAGE Triage time 08:42. Acuity: LEVEL 3. Chief Complaint: ABDOMINAL PAIN and NAUSEA and (left flank pain). Alert. No acute distress. ( Pt. states he was here last week and diagnosed with kidney stones. He thinks he may be passing one today.). SEPSIS SCREEN: Sepsis Screen. Negative (no infection suspected/documented). TERESITA COMA SCORE: [facility] Coma Scale: 15- eyes open spontaneously (4); best verbal response- oriented x 4 (5); best motor response- obeys commands (6). --08:48 Chioma Sr R.N. 08:42 08/24/16. BP: 182/90. HR: 78. RR: 18. O2 saturation: 96%. Temp: 98.6 F. Pain level now 10/10. --08:48 Chioma Sr R.N. Weight: 154.2 kg stated. Height/Length: 72 inches Per Patient. BMI: 46.1. --08:44 Chioma Sr R.N. Medications Citalopram Hydrobromide Oral (Tablet 40 mg) 1 tablet. --08:45 Chioma Sr R.N. The following entry was struck by Chioma Sr R.N., 08:45 (08/24/16) Reason - other. <<STRICKEN ENTRY-- Oxycodone-Acetaminophen Oral (Tablet 7.5-325 mg) 2 tablets, 2x a day (now one a day trying to wean himself). --08:45 Chioma Sr R.N. --END STRIKE>>. Allergies No Known Drug Allergy. --08:45 Chioma Sr R.N. History Arrived by private vehicle. Historian: patient. Unaccompanied. Primary physician (Dr. Parks). This started today. Treatment COST RECORDER: None. PAST MEDICAL HX: Immunizations: up-to-date. SOCIAL HX: Never smoker. Occasional alcohol use. History of drug use: marijuana. (daily). No recent travel. No infectious disease exposure. No known contact with a sick individual. ABUSE ASSESSMENT: Abuse assessment: The patient was asked "Do you feel safe in your home?" and "Has anyone hurt you or threatened to hurt you?". No report of abuse. NUTRITIONAL RISK ASSESSMENT: The nutritional risk assessment revealed no deficiencies. FUNCTIONAL ASSESSMENT: Functional assessment: no impairments noted. LEARNING NEEDS ASSESSMENT: The learning needs assessment revealed no barriers. --08:48 Chioma Sr R.N. PROBLEMS: Constipation. Hypertension. Arthritis. Diverticulitis. Ureterolithiasis. Anxiety Reaction. Chronic pain. Depression. --08:45 Chioma Sr R.N. ADDITIONAL SURGERIES: Fracture Repair. R Leg Surgery. --08:45 Chioma Sr R.N. Interventions ID band on patient. Ambulatory. --08:48 Chioma Sr R.N. PHYSICAL ASSESSMENT Ambulatory to room. GENERAL / NEURO / PSYCH: Alert. Appears in no acute distress. HEENT: Mucous membranes are pink. RESPIRATORY: Respirations not labored. CVS: Capillary refill less than 2 seconds. GI / : Abdomen soft. SKIN: Skin is warm and dry. --08:48 Chioma Sr R.N. NURSING PROGRESS NOTES Patient gowned. Head of bed elevated. Two patient identifiers checked. Call light placed in reach. Side rails up x 2. Bed placed in lowest position. Brakes of bed on. Patient ready for evaluation- chart flagged. --08:48 Chioma Sr R.N. 09:03 08/24/2016 One (1) unsuccessful IV access attempt including the right hand. Applied bandaid and manual pressure (blood draw from line sent to lab.). --09:03 Chioma Sr R.N. 09:20 08/24/2016 Site #1 started via IV in the left hand with an 22g angiocath, with aseptic technique and good blood return; two attempts. Blood drawn: rainbow set. Labeled in the presence of the patient and sent to the lab. Saline lock flushed with 10 mL saline. --09:25 Valeria Almeida R.N. 09:26 08/24/2016 Started bag #1 1000 mL IV Fluids IV NS (Saline); at 1000 mL/hr over 1 hour(s) via site #1 via IV pump. Allergies verified and confirmed 5 rights. IV patency established. IV site checked: no pain, redness, or swelling. IV flushed thoroughly pre- and post-medication administration. --09:27 Chioma Sr R.N. 09:27 08/24/2016 Toradol IVP 30 mg given over 2 minute(s) via site #1. Allergies verified and confirmed 5 rights. IV patency established. IV site checked: no pain, redness, or swelling. IV flushed thoroughly pre- and post-medication administration. --09:27 Chimoa Sr R.N. 10:08/24/2016 Zofran (Ondansetron HCl) IVP 4 mg given over 1 minute(s) via site #1. Allergies verified and confirmed 5 rights. IV patency established. IV site checked: no pain, redness, or swelling. IV flushed thoroughly pre- and post-medication administration. --10:02 Chioma Sr R.N. Reassessment after medication administered. He has had no adverse reaction. Overall patient status- he states feels better. --10:04 Chioma Sr R.N. 10:03 08/24/16. BP: 135/87. HR: 73. RR: 16. O2 saturation: 95%. Pain level now 3/10. --10:04 Chioma Sr R.N. Patient ID band checked for patient name, birthdate and medical record number: patient confirmed. Instructions provided to collect clean catch urine and patient verbalized understanding. Clean catch urine collected with return of yellow-colored clear urine; sample sent to lab for urinalysis. Specimen labeled in the presence of the patient. --10:04 Chioma Sr R.N. 10:25 08/24/2016 IV Fluids IV NS Discontinued: bag #1 infused. Total amount infused: 1000 mL. IV patency established. IV site checked: no pain, redness, or swelling. IV flushed thoroughly. --10:25 Chioma Sr R.N. Patient informed about reason for wait and about plan of care. --11:02 Chioma Sr R.N. 11:16 08/24/16. BP: 143/83. HR: 81. RR: 16. O2 saturation: 96%. --11:18 Chioma Sr R.N. Patient informed about reason for wait and about plan of care. --12:34 Chioma Sr R.N. 12:33 08/24/16. BP: 145/83. HR: 77. RR: 15. O2 saturation: 97%. Pain level now 11/09. --12:34 Chioma Sr R.N. DISPOSITION / DISCHARGE 13:00 08/24/16. Condition at departure: improved. The goals identified in the patient's plan of care were met. No learning barriers present. Discharge instructions provided and reviewed with the patient. Reviewed warnings. Reviewed medication(s). Treatments reviewed. Patient verbalized understanding. Written instructions provided in Mongolian. The patient was discharged by the physician. He was discharged home. He left the Emergency Department ambulatory and via private vehicle. Patient driving. FALL RISK ASSESSMENT: Fall risk assessment completed. No fall risk identified. --13:18 Raz Olivas R.N. 13:18 08/24/2016 Site #1 removed upon discharge. Catheter intact. --13:18 Raz Olivas R.N. 13:17 08/24/16. BP: 124/61. HR: 80. RR: 14. O2 saturation: 99% on room air. Temp: 98.1 F (oral). --13:18 Raz Olivas R.N. 13:18 08/24/16. Departure time: 13:18. --13:18 Raz Olivas R.N. Locked/Released at 08/24/2016 13:19 by Raz Olivas R.N.
--- NOTE | 2016-08-24 12:40 | ED ORDER SUMMARY ---
..... Patient: STEFFEN CHAPARRO OrderSheet [facility] VisitID: [id number] [place] [address] 60y, M Registration Date/Time: 08/24/2016 ORDER SHEET Weight: 154.2 kg (stated) Allergies: No Known Drug Allergy GENERAL ORDERS: CBC w Diff Urgent (09:08/24/2016 Donya VIGIL) (Ack 9:21 FAYEoeverónicaner) (9:22 KHoerner) CMP Urgent (09:08/24/2016 Donya VIGIL) (Ack 9:21 FAYEoeverónicaner) (9:22 KHoerner) UA-Culture if indicated Urgent (:08/24/2016 Donya VIGIL) (Ack 9:21 Lakeshia) (10:02 SReitz R.N.) Amylase Urgent (09:08/24/2016 Donya VIGIL) (Ack 9:21 Lakeshia) (9:22 KHoerner) Lipase Urgent (09:08/24/2016 Donya VIGIL) (Ack 9:21 Andresner) (9:22 KHoerner) Urine Drug Screen Urgent (:08/24/2016 Donya VIGIL) (Ack 9:21 Lakeshia) (10:02 SReitz R.N.) Lumbar Spine 2 or 3V Urgent (11:47 08/24/2016 Donya VIGIL) (Ack 11:48 FAYEoervance) (12:33 SReitz R.N.) MEDICATION ORDERS: IV FLUIDS: IV NS : initial bolus 1000 mL (1000 mL/hr), then 200 mL/hr for 4h (NOW); Urgent (09:08/24/2016 Donya VIGIL) (Ack 9:21 SReitz R.N.) (9:27 SReitz R.N.) Toradol IV 30 mg (NOW) (09:14 08/24/2016 Donya VIGIL) (Ack 9:21 Annetteitz R.N.) (9:27 Annetteitz R.N.) Zofran IV 4 mg (NOW) (09:51 08/24/2016 Donya VIGIL) (Ack 10:00 Nayely Medeiros) (10:02 Nayely Medeiros) ORDER SHEET NOTES: [Electronically signed by Raz Olivas R.N. (13:19 08/24/2016)] [Electronically signed by Brady Washington MD (02:49 08/26/2016)] [Electronically locked/signed by Raz Olivas R.N. (13:19 08/24/2016)]
--- NOTE | 2016-08-24 12:40 | ED ORDER SUMMARY ---
..... Patient: STEFFEN CHAPARRO OrderSheet [facility] VisitID: [id number] [place] [address] 60y, M Registration Date/Time: 08/24/2016 ORDER SHEET Weight: 154.2 kg (stated) Allergies: No Known Drug Allergy GENERAL ORDERS: CBC w Diff Urgent (09:08/24/2016 Donya VIGIL) (Ack 9:21 FAYEoeverónicaner) (9:22 KHoerner) CMP Urgent (09:08/24/2016 Donya VIGIL) (Ack 9:21 FAYEoeverónicaner) (9:22 KHoerner) UA-Culture if indicated Urgent (:08/24/2016 Donya VIGIL) (Ack 9:21 Lakeshia) (10:02 SReitz R.N.) Amylase Urgent (09:08/24/2016 Donya VIGIL) (Ack 9:21 Lakeshia) (9:22 KHoerner) Lipase Urgent (09:08/24/2016 Donya VIGIL) (Ack 9:21 Andresner) (9:22 KHoerner) Urine Drug Screen Urgent (:08/24/2016 Donya VIGIL) (Ack 9:21 Lakeshia) (10:02 SReitz R.N.) Lumbar Spine 2 or 3V Urgent (11:47 08/24/2016 Donya VIGIL) (Ack 11:48 FAYEoervance) (12:33 SReitz R.N.) MEDICATION ORDERS: IV FLUIDS: IV NS : initial bolus 1000 mL (1000 mL/hr), then 200 mL/hr for 4h (NOW); Urgent (09:08/24/2016 Donya VIGIL) (Ack 9:21 SReitz R.N.) (9:27 SReitz R.N.) Toradol IV 30 mg (NOW) (09:14 08/24/2016 Donya VIGIL) (Ack 9:21 Annetteitz R.N.) (9:27 Annetteitz R.N.) Zofran IV 4 mg (NOW) (09:51 08/24/2016 Donya VIGIL) (Ack 10:00 Nayely Medeiros) (10:02 Nayely Medeiros) ORDER SHEET NOTES: [Electronically signed by Raz Olivas R.N. (13:19 08/24/2016)] [Electronically signed by Brady Washington MD (02:49 08/26/2016)] [Electronically locked/signed by Raz Olivas R.N. (13:19 08/24/2016)]
--- NOTE | 2016-08-24 12:58 | DIAGNOSTIC IMAGING REPORT ---
PROCEDURE: XR LUMBAR SPINE 2 OR 3 VIEWS INDICATION: LOWER BACK PAIN TECHNIQUE: Three views. COMPARISON: Abdominal CT 08/03/2016 FINDINGS: Spondylosis at L4-5 and L5-S1. There is a disc space narrowing and vacuum disc phenomenon. Lesser degree of spondylosis at L2-3 and 03/04. No evidence of an acute process or fracture. IMPRESSION: 1. Spondylosis L4-5 L5-S1.
--- NOTE | 2016-08-26 02:49 | ED DISCHARGE INSTRUCTIONS ---
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 INSTRUCTIONS Warnings: Further evaluation is necessary. GENERAL WARNINGS: Return or contact your physician immediately if your condition worsens or changes unexpectedly, if not improving as expected, or if other problems arise. Your Current Medications: CONTINUE TAKING THE FOLLOWING MEDICATIONS: Citalopram Hydrobromide Oral : Tablet 40 mg, 1 tablet. Prescription Medications: Toradol 10 mg tablets: Take 1 tablet orally every 6 hours as needed. Dispense fifteen (15). No refills. Substitution is permissible. Follow-up: Follow up with an orthopedic surgeon and a neurosurgeon- as recommended by your primary care physician. Understanding of the discharge instructions verbalized by patient. Follow-up with: Abimael Feng MD, [facility], , [facility] [address] [id number] Follow up in four days. Call for the next available appointment. ADDITIONAL INFORMATION Back Pain [Acute Or Chronic] Back pain is usually caused by an injury to the muscles or ligaments of the spine. Sometimes the disks that separate each bone in the spine may bulge and cause pain by pressing on a nearby nerve. Back pain may also appear after a sudden twisting/bending force (such as in a car accident), after a simple awkward movement, or lifting something heavy with poor body positioning. In either case, muscle spasm is often present and adds to the pain. Acute back pain usually gets better in one to two weeks. Back pain related to disk disease, arthritis in the spinal joints or spinal stenosis (narrowing of the spinal canal) can become chronic and last for months or years. Unless you had a physical injury (for example, a car accident or fall) X-rays are usually not ordered for the initial evaluation of back pain. If pain continues and does not respond to medical treatment, x-rays and other tests may be performed at a later time. Home Care: You may need to stay in bed the first few days. But, as soon as possible, begin sitting or walking to avoid problems with prolonged bed rest (muscle weakness, worsening back stiffness and pain, blood clots in the legs). When in bed, try to find a position of comfort. A firm mattress is best. Try lying flat on your back with pillows under your knees. You can also try lying on your side with your knees bent up towards your chest and a pillow between your knees. Avoid prolonged sitting. This puts more stress on the lower back than standing or walking. During the first two days after injury, apply an ICE PACK to the painful area for 20 minutes every 2-4 hours. This will reduce swelling and pain. HEAT (hot shower, hot bath or heating pad) works well for muscle spasm. You can start with ice, then switch to heat after two days. Some patients feel best alternating ice and heat treatments. Use the one method that feels the best to you. You may use acetaminophen (Tylenol) or ibuprofen (Motrin, Advil) to control pain, unless another pain medicine was prescribed. [NOTE: If you have chronic liver or kidney disease or ever had a stomach ulcer or GI bleeding, talk with your doctor before using these medicines.] Be aware of safe lifting methods and do not lift anything over 15 pounds until all the pain is gone. Follow Up with your doctor or this facility if your symptoms do not start to improve after one week. Physical therapy may be needed. [NOTE: If X-rays were taken, they will be reviewed by a radiologist. You will be notified of any new findings that may affect your care.] Get Prompt Medical Attention if any of the following occur: Pain becomes worse or spreads to your legs Weakness or numbness in one or both legs Loss of bowel or bladder control Numbness in the groin or genital area Degenerative Disk Disease Spinal disks are gel-filled cushions between the bones of the spine (vertebrae). The disks act like shock absorbers. Over time, the disks may break down. This disorder is called degenerative disk disease (DDD). DDD can affect the neck or back. It is one of the most common causes of low back pain. It is the leading cause of disability in people under age 45 in the [place]. The pain usually remains localized to the lower back or neck. Muscle spasm is often present and adds to the pain. Disk degeneration is a natural part of aging, although it does not cause pain in most persons. It may also occur as a result of repeated minor injuries due to daily activities, sports, or accidents. It may lead to osteoarthritis of the spine. Back pain related to disk disease may come and go or become chronic and last for months or years. If the disk bulges or ruptures (also called slipped disk or herniated disk), it can put pressure on a nearby spinal nerve and cause neck or back pain that spreads down one arm or leg. X-rays or MRI (magnetic resonance imaging) scan may aid in the diagnosis. For acute pain, treatment consists of anti-inflammatory drugs, muscle relaxants, rest, ice, or heat. Narcotic pain medicines may be needed for short-term treatment of sudden worsening of pain. Due to their addictive potential, narcotics are not advised for long-term pain management. Other types of medicines are preferred. Surgery is usually not used to treat this condition unless there is a complication (such as nerve root compression). Home Care: FOR NECK PAIN: Use a comfortable pillow that supports the head and keeps the spine in a neutral position. The head should not be tilted forward or backward. FOR BACK PAIN: Avoid prolonged sitting. This puts more stress on the lower back than standing or walking. Establishing a regular exercise program to strengthen the supporting muscles of the spine will make it easier to live with DDD. During the first2 days after a flare-up of your pain, apply anice pack to the painful area for 20 minutes every 2-4 hours. This will reduce swelling and pain.Heat (hot shower, hot bath, or heating pad) works well for muscle spasm. You can start with ice, then switch to heat after2 days. Some patients feel best alternating ice and heat treatments. Use the method that feelsbest to you. You may use acetaminophen (Tylenol) or ibuprofen (Motrin, Advil) to control pain, unless another pain medicine was prescribed. [NOTE: If you have chronic liver or kidney disease or ever had a stomach ulcer or GI bleeding, talk with your doctor before using these medicines.] Follow Up with your physician, or as directed by our staff. [NOTE: If x-rays, a CT scan or an MRI scan were taken, they will be reviewed by a radiologist. You will be notified of any new findings that may affect your care.] Return Promptly or contact your doctor if any of the following occur: Increasing back pain New weakness, numbness, or pain in one or both arms or legs Foot drop (foot drags when you walk) Loss of bowel or bladder control Numbness or tingling in the buttock or groin area Unexplained fever over 100.4F (38.0C) Ketorolac Tromethamine Oral tablet What is this medicine? KETOROLAC (avis toe ROLE ak) is a non-steroidal anti-inflammatory drug (NSAID). It is used for a short while to treat moderate to severe pain, including pain after surgery. It should not be used for more than 5 days. How should I use this medicine? Take this medicine by mouth with a full glass of water. Follow the directions on the prescription label. Take your medicine at regular intervals. Do not take your medicine more often than directed. Do not take more than the recommended dose. A special MedGuide will be given to you by the pharmacist with each prescription and refill. Be sure to read this information carefully each time. Talk to your maintenance operator regarding the use of this medicine in children. While this drug may be prescribed for children as young as 16 years of age for selected conditions, precautions do apply. Patients over 65 years old may have a stronger reaction and need a smaller dose. What side effects may I notice from receiving this medicine? Side effects that you should report to your doctor or health emergency care tech as soon as possible: allergic reactions like skin rash, itching or hives, swelling of the face, lips, or tongue black or tarry stools breathing problems changes in vision chest pain high blood pressure nausea or vomiting redness, blistering, peeling or loosening of the skin, including inside the mouth severe abdominal pain slurred speech or weakness on one side of the body unexplained weight gain or swelling unusual bleeding or bruising unusually weak or tired yellowing of eyes or skin Side effects that usually do not require medical attention (report to your doctor or health emergency care tech if they continue or are bothersome): diarrhea dizziness headache heartburn What may interact with this medicine? Do not take this medicine with any of the following medications: aspirin and aspirin-like medicines cidofovir methotrexate NSAIDs, medicines for pain and inflammation, like ibuprofen or naproxen pemetrexed probenecid This medicine may also interact with the following medications: alcohol alendronate alprazolam carbamazepine cyclosporine diuretics flavocoxid fluoxetine ginkgo lithium medicines for high blood pressure like enalapril medicines that affect platelets like pentoxifylline medicines that treat or prevent blood clots like heparin, warfarin muscle relaxants phenytoin steroid medicines like prednisone or cortisone thiothixene What if I miss a dose? If you miss a dose, take it as soon as you can. If it is almost time for your next dose, take only that dose. Do not take double or extra doses. Where should I keep my medicine? Keep out of the reach of children. Store at room temperature between 20 and 25 degrees C (68 and 77 degrees F). Throw away any unused medicine after the expiration date. What should I tell my health care provider before I take this medicine? They need to know if you have any of these conditions: asthma bleeding problems like hemophilia cigarette smoker drink more than 3 alcohol containing drinks a day heart disease or circulation problems such as heart failure or leg edema (fluid retention) high blood pressure kidney disease liver disease stomach bleeding or ulcers an unusual or allergic reaction to ketorolac, aspirin, other NSAIDs, other medicines, foods, dyes, or preservatives or trying to get breast-feeding What should I watch for while using this medicine? Tell your doctor or health emergency care tech if your pain does not get better. Talk to your doctor before taking another medicine for pain. Do not treat yourself. This medicine does not prevent heart attack or stroke. In fact, this medicine may increase the chance of a heart attack or stroke. The chance may increase with longer use of this medicine and in people who have heart disease. If you take aspirin to prevent heart attack or stroke, talk with your doctor or health emergency care tech. Do not take medicines such as ibuprofen and naproxen with this medicine. Side effects such as stomach upset, nausea, or ulcers may be more likely to occur. Many medicines available without a prescription should not be taken with this medicine. This medicine can cause ulcers and bleeding in the stomach and intestines at any time during treatment. Do not smoke cigarettes or drink alcohol. These increase irritation to your stomach and can make it more susceptible to damage from this medicine. Ulcers and bleeding can happen without warning symptoms and can cause . You may get drowsy or dizzy. Do not drive, use machinery, or do anything that needs mental alertness until you know how this medicine affects you. Do not stand or sit up quickly, especially if you are an older patient. This reduces the risk of dizzy or fainting spells. This medicine can cause you to bleed more easily. Try to avoid damage to your teeth and gums when you brush or floss your teeth. You have been given the following additional information: Back Pain (Acute Or Chronic) Degenerative Disk Disease Ketorolac Tromethamine Oral tablet (Electronically signed by Brady Washington MD 08/26/2016 2:49)
--- NOTE | 2016-08-26 02:49 | ED MED RECONCILIATION SUMMARY ---
Patient: STEFFEN CHAPARRO Medication Reconciliation Report [facility] VisitID: [id number] [address] [place] [address] 60y, M Registration Date/Time: 08/24/2016 Weight: 154.2 kg Height/Length: 72 in. BMI: 46.1 ALLERGIES: No Known Drug Allergy The patient's Home Medications are listed below: CONTINUE TAKING THE FOLLOWING MEDICATIONS: Citalopram Hydrobromide Oral (40 mg) 1 tablet The source(s) of the original Home Medication information: Not obtained. The following Medications were given to the patient in the Emergency Department: IV NS IV Fluids bolus 0, then 1000 mL/hr, administered: 08/24/2016 9:26:00 AM Toradol [IVP] IVP 30 mg, administered: 08/24/2016 9:27:00 AM Zofran [IVP] IVP 4 mg, administered: 08/24/2016 10:02:00 AM The following Medications were prescribed to the patient: Toradol 10 mg tablets: Take 1 tablet orally every 6 hours as needed. Dispense fifteen (15). No refills. Substitution is permissible. -- Brady Washington MD
--- NOTE | 2016-08-26 02:49 | ED MAR SUMMARY ---
..... Medication Administration Record [facility] [address] [place] [address] Patient: STEFFEN CHAPARRO Visit ID: [id number] 60y, M Weight: 154.2 kg Height/Length: 72 in BMI: 46.1 ALLERGIES: No Known Drug Allergy Start 09:26 08/24/2016 Chioma Sr R.N., Stop 10:25 08/24/2016 Chioma Sr R.N. Medication Administered: IV NS (SALINE), Dose: IV Fluids over 1 hour(s), Rate: 1000 mL/hr, Dispensed: 1000 mL bag, Site: #1 left hand. Medication Ordered: IV NS : initial bolus 1000 mL (1000 mL/hr), then 200 mL/hr for 4h (NOW); Urgent. Given 09:27 08/24/2016 Chioma Sr R.N. Medication Administered: TORADOL [IVP], Dose: 30 mg IVP over 2 minute(s), Site: #1 left hand. Medication Ordered: Toradol IV 30 mg (NOW). Given 10:02 08/24/2016 Chioma Sr R.N. Medication Administered: ZOFRAN [IVP] (ONDANSETRON HCL), Dose: 4 mg IVP over 1 minute(s), Site: #1 left hand. Medication Ordered: Zofran IV 4 mg (NOW).
--- NOTE | 2016-08-26 02:49 | ED MAR SUMMARY ---
..... Medication Administration Record [facility] [address] [place] [address] Patient: STEFFEN CHAPARRO Visit ID: [id number] 60y, M Weight: 154.2 kg Height/Length: 72 in BMI: 46.1 ALLERGIES: No Known Drug Allergy Start 09:26 08/24/2016 Chioma Sr R.N., Stop 10:25 08/24/2016 Chioma Sr R.N. Medication Administered: IV NS (SALINE), Dose: IV Fluids over 1 hour(s), Rate: 1000 mL/hr, Dispensed: 1000 mL bag, Site: #1 left hand. Medication Ordered: IV NS : initial bolus 1000 mL (1000 mL/hr), then 200 mL/hr for 4h (NOW); Urgent. Given 09:27 08/24/2016 Chioma Sr R.N. Medication Administered: TORADOL [IVP], Dose: 30 mg IVP over 2 minute(s), Site: #1 left hand. Medication Ordered: Toradol IV 30 mg (NOW). Given 10:02 08/24/2016 Chioma Sr R.N. Medication Administered: ZOFRAN [IVP] (ONDANSETRON HCL), Dose: 4 mg IVP over 1 minute(s), Site: #1 left hand. Medication Ordered: Zofran IV 4 mg (NOW).
--- NOTE | 2016-08-26 02:49 | ED MED RECONCILIATION SUMMARY ---
Patient: STEFFEN CHAPARRO Medication Reconciliation Report [facility] VisitID: [id number] [address] [place] [address] 60y, M Registration Date/Time: 08/24/2016 Weight: 154.2 kg Height/Length: 72 in. BMI: 46.1 ALLERGIES: No Known Drug Allergy The patient's Home Medications are listed below: CONTINUE TAKING THE FOLLOWING MEDICATIONS: Citalopram Hydrobromide Oral (40 mg) 1 tablet The source(s) of the original Home Medication information: Not obtained. The following Medications were given to the patient in the Emergency Department: IV NS IV Fluids bolus 0, then 1000 mL/hr, administered: 08/24/2016 9:26:00 AM Toradol [IVP] IVP 30 mg, administered: 08/24/2016 9:27:00 AM Zofran [IVP] IVP 4 mg, administered: 08/24/2016 10:02:00 AM The following Medications were prescribed to the patient: Toradol 10 mg tablets: Take 1 tablet orally every 6 hours as needed. Dispense fifteen (15). No refills. Substitution is permissible. -- Brady Washington MD
== END 2016-08-24 13:18 | disposition home or self-care (01) ==
LOC: ED SRH 08:38
DX: M51.36 Other intervertebral disc degeneration, lumbar region (principal); I10 Essential (primary) hypertension
CPT/HCPCS: 90004; 90100; 92235; 92530; 92760; 92761; 92762; 92763; 92764; 92765; 92766; 92767; 95059